=== PATIENT | male | born 1985 | race Caucasian/White ===

== ENCOUNTER 2024-06-20 11:15 | Emergency (ER) | payer OTHER, SELFPAY ==
[2024-06-20 11:16] VITALS: BP 127/99; PULSE 78; RESP 16; TEMP 36.8; O2SAT 96; BMI 25.7
--- NOTE | 2024-06-20 11:33 | CT_ITS ---
PROCEDURE: ABDOMEN/PELVIS WITHOUT CONT REASON FOR EXAM: Left flank pain. TECHNIQUE: Abdomen and pelvis CT with intravenous contrast. IV CONTRAST: COMPARISON: None. FINDINGS: Lung bases: Clear Liver: Unremarkable. Gallbladder: Unremarkable. Spleen: Unremarkable. Pancreas: Unremarkable. Adrenals: Unremarkable. Kidneys: Mild degree of left hydronephrosis. There is a 2 mm calculus at the base of the bladder on the right side suggestive of recently passed left ureteral calculus. Bladder: Unremarkable.. The prostate measures 4.8 cm x 4.2 cm. Reproductive Organs: Unremarkable. Bowel: Colonic diverticulosis without diverticulitis.. Small left inguinal hernia containing fat. Appendix: Normal. Lymph nodes: No suspicious lymph node enlargement. Vasculature: Major vascular structures are unremarkable. Peritoneum / Retroperitoneum: No ascites. No free air. Bones: Straightening of the normal lumbar lordosis. CT/Abdomen/Pelvis without Cont IMPRESSION: Mild degree of left hydronephrosis due to a recently passed 2 mm calculus which lies at the base of the bladder on the right side. One or more dose reduction techniques were used (e.g., Automated exposure contr ol, adjustment of the mA and/or kV according to patient size, use of iterative reconstruction technique). Reading Location: [facility]
--- NOTE | 2024-06-20 11:33 | EX.ED.DYSGE1 ---
HPI History of Present Illness Chief Complaint: Flank Pain Narrative Narrative: 39-year-old male who denies significant past medical history presents with his because of left flank pain that he has had intermittently for the last week. He states about a week ago he awoke with sharp pain in his left lower quadrant radiating into his left flank. He denies any testicular pain. No fevers or chills but the pain was so severe that he was nauseated and vomited at that time. He states it started at 1:00 in the morning about a week ago and then by 5 AM, it had improved significantly. He went to work the following day. While he had been doing well, this morning at around 6 AM, approximately 5-1/2 hours ago he started having the left flank pain again. This time he denies any fevers or chills, no nausea or vomiting, no dysuria or hematuria, no problems with bowel movement. He may have been constipated and took a laxative today, and had a healthy bowel movement. No prior abdominal surgeries. He took ibuprofen this morning, then again prior to arrival and now feels soreness in his abdomen mainly on the left side, but the pain has improved mildly. When he has the pain there are no exacerbating or alleviating factors. PFSH PFSH Allergy/AdvReac Type Severity Reaction Status Date / Time No Known Allergies Allergy Verified 06/20/24 11:17 Social History Smoking Status: Never smoker ROS ROS ED ROS Narrative Review of systems positive for left flank pain, left lower quadrant abdominal pain radiating into the flank. No testicular pain. No fevers or chills. No nausea or vomiting currently. No dysuria or hematuria. EXAM Physical Exam Narrative Exam Narrative: Afebrile. Vital signs noted. Nontoxic-appearing. Cardiovascular examination reveals a regular rate and rhythm. Lungs are clear to auscultation bilaterally. Abdomen is soft and nontender with positive bowel sounds. No guarding or rebound. Neurological examination nonfocal and nonlateralizing. Const Vital Signs: 06/20/24 11:16 Temperature 98.2 F Temperature Source Oral Pulse Rate 78 Respiratory Rate 16 Blood Pressure 127/99 H Blood Pressure Mean 108 Pulse Ox 96 Oxygen Delivery Method Room Air MDM MDM MDM Narrative Medical decision making narrative: Differential diagnosis includes but not limited to ureterolithiasis versus pyelonephritis versus diverticulitis versus bowel obstruction versus gastroenteritis. I have low suspicion for any testicular pathology because he is not having any testicular pain or groin pain. Comprehensive workup was pursued. I do feel CT imaging is indicated without contrast to rule out ureterolithiasis. I reviewed his laboratory work and he has normal white count 9.0 with hemoglobin normal at 14.6 platelet count normal at 301. Partial BMP returned and he has normal creatinine of 1.0 with BUN normal at 18. Urinalysis is negative for ketones, negative for infection with 0-5 WBCs and 0-5 RBCs. 0 bacteria. I do not feel antibiotics are indicated. I reviewed the radiology report of the CT of the abdomen and pelvis without contrast. There is mild left hydronephrosis from a 2 mm stone that has recently passed and is sitting in the right side of the bladder. Upon repeat examination, patient states he feels the same. He had already taken ibuprofen prior to arrival so I did not want to give him additional Toradol. I offered him stronger narcotic pain medication but he declined. Additionally I offered to write him for a narcotic pain medication as an outpatient but he states that the ibuprofen was working well. As his stone has already passed, I believe he can continue [id number] medications. As long as the rest of the BMP returns within normal limits, I feel he can be discharged to follow-up with urology as needed. Patient signed out to Dr. Motta to check the remaining BMP/electrolytes. Return instructions to the emergency department were reviewed as well. Disposition is anticipated discharged in stable condition. History & Record Review Discussion w/independent historian: Patient and Family Lab Data Attestation: I reviewed the patient's lab results. Labs: Laboratory Results - last 24 hr 06/20/24 11:40 WBC 9.0 RBC 4.93 Hgb 14.6 Hct 42.6 MCV 86.4 MCH 29.6 MCHC 34.3 RDW Std Deviation 38.8 RDW Coeff of Tiffany 12.2 Plt Count 301 MPV 9.2 Immature Gran % (Auto) 0.300 Neut % (Auto) 78.3 H Lymph % (Auto) 11.2 L [place] % (Auto) 7.4 Eos % (Auto) 2.2 Baso % (Auto) 0.6 Absolute Neuts (auto) 7.1 Absolute Lymphs (auto) 1.01 Nucleated RBC % 0 BUN 18 Creatinine 1.0 Estim Creat Clear Calc 110.97 Est GFR (MDRD) Non-Af 94 BUN/Creatinine Ratio 17.6 Glucose 97 Urine Color Yellow Urine Clarity Clear Urine pH 6.0 Ur Specific [place] 1.015 Urine Protein 15 H Urine Glucose (UA) Normal Urine Ketones Negative Urine Occult Blood 25 H Urine Nitrite Negative Urine Bilirubin Negative Urine Urobilinogen Normal Ur Leukocyte Esterase 25 H Urine RBC 0-5 SEEN Urine WBC 0-5 SEEN Ur Squamous Epith Cells 0 SEEN Urine Bacteria 0 SEEN Urine Mucus 1+ Radiography Diagnostic Testing: Clinical Impression(s) from Imaging Studies Abdomen/Pelvis CT 06/20/24 11:33 IMPRESSION: Mild degree of left hydronephrosis due to a recently passed 2 mm calculus which lies at the base of the bladder on the right side. One or more dose reduction techniques were used (e.g., Automated exposure control, adjustment of the mA and/or kV according to patient size, use of iterative reconstruction technique). Reading Location: [id number] Discharge Plan Triage Chief Complaint: Flank Pain ED Provider: Tad Stone Dx/Rx/DC Orders Clinical Impression: Left flank pain, Hydronephrosis with ureteral calculus Instructions: ED Kidney Stone, Passed, ED Kidney Stone with Pain Primary Care Provider: Care Physician,No Primary Referrals: Ernesto Figueredo MD [Med Staff - Active Staff] - 3-5 Days if not improving NOT,DEFINED [Non-Staff] - Activity Restrictions/Additional Instructions: Continue ibuprofen as previously directed for pain. Return to the emergency department with increased pain, fever, new or worsening symptoms. Print Language: Swedish Disposition Disposition: Home, Self Care Discharge Date/Time: 06/20/24 15:45
[2024-06-20 11:47] LABS: Bacteria 0 SEEN /hpf (None Seen); Squamous Epithelial Cells - UA 0 SEEN /hpf (0-5)
[2024-06-20 11:51] LABS: Color, Urine Yellow (Yellow); Glucose, Dipstick Normal (Normal); Ketone-Dipstick Negative (Negative); Leukocyte Esterase-Dipstick 25 /ul (Negative); Nitrite-Dipstick Negative (Negative); Occult Blood-Urine 25 /ul (Negative); Protein-Dipstick 15 mg/dl (Negative); Specific Gravity, Urine 1.015 (1.002-1.030); Urine Bilirubin Dipstick Negative (Negative); Urine Clarity Clear (Clear); Urine Urobilinogen Normal (Normal)
[2024-06-20 11:53] LABS: Absolute Lymphocyte Count 1.01 X10^3/uL (0.83-4.51); Absolute Neutrophil Count 7.1 X10^3/uL (2.0-7.7); Basophil# 0.05 X10^3/uL; Basophil% 0.6 % (0-1); Eosinophils% 2.2 % (0-5); Hematocrit 42.6 % (40-54); Hemoglobin 14.6 g/dL (13.0-16.5); Lymphocyte # 1.01 X10^3/ul (0.83-4.51); Lymphocyte % 11.2 % (19-41); Mean Corp Hgb Conc 34.3 g/dL (32-36); Mean Corpuscular Hgb 29.6 pg (27.0-32.0); Mean Corpuscular Volume 86.4 fL (80-94); Mean Platelet Vol. 9.2 fl (6.2-12.0); Monocyte# 0.67 X10^3/uL; Monocyte% 7.4 % (0-10); NRBC Flagged by Analyzer 0 % (0-5); Neutrophil # 7.07 X10^3/uL (2.7-7.7); Neutrophil % 78.3 % (47-70); Platelet Count 301 K/mm3 (150-450); RBC Distribution Width CV 12.2 % (11.6-14.6); RBC Distribution Width SD 38.8 fl (35.1-43.9); Red Blood Count 4.93 M/mm3 (4.6-6.2)
[2024-06-20 12:13] LABS: Mucous, Urine 1+ /hpf (<or=2+); Red Blood Cells-Urine 0-5 SEEN /hpf (0-5); White Blood Cells 0-5 SEEN /hpf (0-5)
[2024-06-20 13:16] VITALS: PULSE 70; RESP 14; O2SAT 98
--- NOTE | 2024-06-20 14:20 | ED.RN ---
Patient ambulated to bathroom without assistance
[2024-06-20 15:00] VITALS: PULSE 68; RESP 17; O2SAT 98
[2024-06-20 15:10] LABS: Calcium,Total 9.8 mg/dL (7.6-11.0); Chloride 103 mmol/L (98-107); Potassium 3.9 mmol/L (3.5-5.1); Sodium Level 139 mmol/L (136-145)
[2024-06-20 15:24] LABS: BUN 18 mg/dL (4-19); BUN/Creat Ratio 16.2 RATIO (10-20); Creatinine, Serum 1.1 mg/dL (0.8-1.3); EST Glomerular Filtration Rate 79 (>60); Estimated Creatinine Clearance 100.88 ml/min; Glucose 94 mg/dL (70-99)
[2024-06-20 15:39] VITALS: BP 127/99; PULSE 68; RESP 17; TEMP 36.8; O2SAT 98
[2024-06-20 15:41] LABS: Anion Gap 13 (5-15); Carbon Dioxide 22.7 mmol/L (21.0-32.0)
== END 2024-06-20 15:45 | disposition home or self-care (01) ==
PROVIDERS: Emergency Provider Emergency Medicine; Visit Provider Emergency Medicine
DX: N13.2 Hydronephrosis with renal and ureteral calculous obstruction (principal)
CPT/HCPCS: 74176; 80048; 81001; 85025; 99283